=== PATIENT | male | born 2000 ===

== ENCOUNTER 2019-05-15 14:24 | Emergency (ER) | payer SELFPAY ==
[~2019-05-15] VITALS: Ht 198.1 cm; Wt 78.0 kg
[2019-05-15] MEDS ORDERED: ACETAMINOPHEN 325MG TABLET PO ONE (16:45)
[2019-05-15] MEDS ORDERED: BACITRACIN 15GM TUBE TOP NR (16:45)
[2019-05-15] MEDS ORDERED: LIDOCAINE HCL 1% 20ML VIAL (Pyxis) INJ INFIL NR (16:45)
[2019-05-15] MEDS ORDERED: ACETAMINOPHEN 500MG TABLET PO NR (16:54)
[2019-05-15] MEDS ORDERED: TETANUS, DIPHTHERIA, PERTUSSIS VAC/PF 0.5ML (>7YR OLD) IM ONE (18:15)
[2019-05-15 18:27] VITALS: BP 115/76
== END 2019-05-15 20:55 | disposition home or self-care (01) ==
LOC: ER 19:41
DX: S61.216A Laceration without foreign body of right little finger without damage to nail, initial encounter (principal); W26.0XXA Contact with knife, initial encounter; Y93.89 Activity, other specified; Y92.89 Other specified places as the place of occurrence of the external cause
CPT/HCPCS: 12001; 73140; 90471; 90715; 99283; J3490